=== PATIENT | male | born 1975 | race Caucasian/White ===

== ENCOUNTER → 2016-09-10 | Outpatient (CLI) | payer OTHER ==
[2016-09-10 10:28] LABS: BASO % 0.4 % (0.0-1.0); EOS # 0.3 K/mm3 (0.0-0.50); EOS % 2.1 % (0.0-3.0); LARGE UNSTAINED CELL # 0.2 K/mm3 (0.0-0.4); LARGE UNSTAINED CELL % 1.3 % (0.0-4.0); LYMPH # 2.1 K/mm3 (1.5-4.5); LYMPH % 15.3 % (24.0-44.0); MEAN CORPUSCULAR HEMOGLOBIN 28.3 pg (27.0-33.0); MEAN CORPUSCULAR HGB CONC 32.7 g/dl (32.0-36.5); MEAN CORPUSCULAR VOLUME 86.6 fl (80.0-96.0); MONO # 0.8 K/mm3 (0.0-0.8); NEUTROPHILS # 9.5 K/mm3 (1.8-7.7); NEUTROPHILS % 74.9 % (36.0-66.0); PLATELET COUNT, AUTOMATED 219 k/mm3 (150-450); RED CELL DISTRIBUTION WIDTH 13.8 % (11.5-14.5); WHITE BLOOD COUNT 12.6 K/mm3 (4.0-10.0)
[2016-09-10 11:15] LABS: ALBUMIN 3.5 GM/DL (3.2-5.2); BILIRUBIN,TOTAL 0.4 MG/DL (0.2-1.0); CALCIUM LEVEL 8.3 MG/DL (8.5-10.1); CREATININE FOR GFR 1.58 MG/DL (0.70-1.30); GLOMERULAR FILTRATION RATE 51.7 (>60); POTASSIUM SERUM 4.3 MEQ/L (3.5-5.1)
--- NOTE | 2016-09-10 11:40 | REP ---
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 Comparisons are 10/04/2011 and 10/03/2015. The visualized lung merchant are unremarkable. The unenhanced hepatic parenchyma, gallbladder, pancreas and spleen are unremarkable. The adrenals, kidneys and abdominal aorta are unremarkable. There is no retroperitoneal or pelvic adenopathy. There is no mesenteric adenopathy. The bowel is unremarkable. Pelvis: There is no ascites or adenopathy. The bladder is unremarkable. The pelvic bowel loops are unremarkable. There are no lytic, blastic or destructive skeletal changes. There is a small bone cyst posteriorly in the left iliac wing, not significantly changed from 10/03/2015. Impression: There is no adenopathy, ascites or mass. Small bone cyst posteriorly in the left iliac wing. Otherwise, essentially negative CT of the abdomen and pelvis. Signed by Morro Mathias MD 09/10/2016 11:32 A
== END ==
LOC: M LAB 09:26 → M RAD 09:26
PROVIDERS: ATTEND Internal Medicine Medical Oncology
DX: M85.452 Solitary bone cyst, left pelvis (principal); Z85.47 Personal history of malignant neoplasm of testis; Z90.79 Acquired absence of other genital organ(s)

== ENCOUNTER → 2016-11-03 | Outpatient (CLI) | payer OTHER ==
--- NOTE | 2016-11-03 17:07 | REP ---
HISTORY: Low back pain. COMPARISON: No prior MRIs for comparison. Today's exam was performed before and after intravenous gadolinium administration. Gadolinium utilized: 23.6 mL of ProHance. There is slight posterior disc space height loss from L3-4 to L5-S1, inclusive. Disc space hydrational signal is within normal limits throughout. Vertebral body height and alignment is within normal limits. The marrow signal is within normal limits. No abnormal signal is seen in the imaged portion of the spinal cord. The conus ends at T12-L1. At the L1-2 level, there is no disc herniation, foraminal narrowing or central canal stenosis. Mild degenerative facet joint changes are present bilaterally. At the L2-3 level, there is a minimal broad-based annular bulge seen in conjunction with mild degenerative facet joint changes bilaterally and minimal thickening of the ligamentum flava. There is mild compression of the anterior surface of the thecal sac. There is no disc extrusion or foraminal narrowing. At the L3-4 level, there is a moderate broad-based annular bulge seen in conjunction with a tiny focal subligamentous disc protrusion. Degenerative facet joint changes are seen mildly bilaterally with mild thickening of the ligamentum flava. There is minimal central canal stenosis due to the aforementioned changes with a flattening and straightening of the anterior surface of the thecal sac. No disc extrusion is present. At the L4-5 level, there is a broad-based annular bulge seen in conjunction with degenerative facet joint changes bilaterally and thickening of the ligamentum flava. There is mild anterior compression of the anterior surface of the thecal sac causing minimal central canal stenosis. There is no bebo foraminal narrowing or disc extrusion. At the L5-S1 level, there is no disc herniation, foraminal narrowing or central canal stenosis. No abnormal enhancement is seen at any imaged level. IMPRESSION: Discogenic changes and other related findings as described above. Signed by Raudel Nazario DO 11/04/2016 10:11 A
== END ==
LOC: M RAD 14:04
DX: M51.36 Other intervertebral disc degeneration, lumbar region (principal); M47.16 Other spondylosis with myelopathy, lumbar region
CPT/HCPCS: 72158; A9576

== ENCOUNTER → 2016-11-22 | Outpatient (CLI) | payer OTHER ==
[~2016-11-22] MED LIST: GASTROGRAFIN SOLUTION 30ML (Q9963) As Ordered ONE; ISOVUE-370 76% 100ML VIAL (Q9967) As Ordered ONE
--- NOTE | 2016-11-22 16:37 | REP ---
CT of the abdomen pelvis multiphase imaging without IV contrast, followed by dual phase IV contrast enhanced imaging . Comparisons are the CT of the abdomen pelvis without IV contrast dated 09/10/2016 and the lumbar MRI without and with gadolinium contrast enhancement dated 11/03/2016. The visualized lung merchant are unremarkable. The hepatic parenchyma is homogeneous on all phases of the study except for a small 9 mm hepatic cyst anteriorly in the medial segment of the hepatic left lobe, unchanged from the comparison CT and unchanged from a prior study of 10/03/2015. The hepatic parenchyma is otherwise homogeneous and unremarkable. The gallbladder, pancreas and spleen are normal size and unremarkable. The adrenals, kidneys and abdominal aorta are unremarkable and unchanged. There is no retroperitoneal adenopathy. There is no mesenteric adenopathy. The bowel and mesentery are otherwise unremarkable. Pelvis: The appendix has a normal appearance. There is no ascites. There is no adenopathy. The pelvic bowel loops are unremarkable. There are no lytic, blastic or destructive skeletal lesions, particularly at L4-5. There is a bone cyst posteriorly in the left iliac wing, unchanged in 10/03/2015. There is osteophytic bridging of the left sacroiliac joint superiorly, unchanged from 10/03/2015, compatible with mild osteoarthritis. Impression: There is no evidence of adenopathy, mass or metastatic disease. No skeletal metastases are identified, particularly at the L4-5 level. There is a small 9 mm cyst in the left lobe of the liver. There is a small bone cyst posteriorly in the left iliac wing. There is osteophytic bridging of the left sacroiliac joint compatible with osteoarthritis. Signed by Morro Mathias MD 11/22/2016 04:28 P
== END ==
LOC: M RAD 14:00
DX: M46.98 Unspecified inflammatory spondylopathy, sacral and sacrococcygeal region (principal); K76.89 Other specified diseases of liver; M85.452 Solitary bone cyst, left pelvis
CPT/HCPCS: 74178; Q9963; Q9967

== ENCOUNTER → 2017-11-04 | Outpatient (REF) | payer OTHER ==
[2017-11-04 14:12] LABS: ALPHA FETOPROTEIN TUMOR QUANT 4.6 NG/ML (<8.1)
[2017-11-05 08:06] LABS: HCG SERUM TUMOR MARKER QUANT < 1 mIU/mL (0-3)
== END ==
LOC: M LAB REF 13:03
DX: C62.12 Malignant neoplasm of descended left testis (principal)
CPT/HCPCS: 84702

== ENCOUNTER → 2017-11-07 | Outpatient (CLI) | payer OTHER ==
[~2017-11-07] MED LIST changes: +GASTROGRAFIN SOLUTION 30ML (Q9963) As Ordered; -GASTROGRAFIN SOLUTION 30ML (Q9963) As Ordered ONE; +ISOVUE-370 76% 100ML VIAL (Q9967) As Ordered; -ISOVUE-370 76% 100ML VIAL (Q9967) As Ordered ONE
== END ==
LOC: M RAD 13:30
DX: C62.90 Malignant neoplasm of unspecified testis, unspecified whether descended or undescended (principal); K44.9 Diaphragmatic hernia without obstruction or gangrene
CPT/HCPCS: Q9963

== ENCOUNTER 2017-11-30 08:16 | Day surgery (SDC) | payer OTHER ==
[2017-11-30] MEDS: NS 1,000 ML IV (08:49)
[2017-11-30] MEDS ORDERED: LIDOCAINE 2% INJ 100 MG/5 ML SDV (FOR ANES.) As Ordered (09:49)
[2017-11-30] MEDS ORDERED: PROPOFOL 200 MG/20 ML VIAL As Ordered ×2 (09:49→10:25)
== END 2017-11-30 10:35 | disposition home or self-care (01) ==
LOC: M OPP 08:16
DX: R12 Heartburn (principal); K22.8 Other specified diseases of esophagus; K44.9 Diaphragmatic hernia without obstruction or gangrene; Z85.47 Personal history of malignant neoplasm of testis; Z92.21 Personal history of antineoplastic chemotherapy; K21.9 Gastro-esophageal reflux disease without esophagitis; G47.30 Sleep apnea, unspecified; Z79.899 Other long term (current) drug therapy
CPT/HCPCS: 43239

== ENCOUNTER → 2020-11-17 | Outpatient (REF) ==
[~2020-11-17] MED LIST changes: -GASTROGRAFIN SOLUTION 30ML (Q9963) As Ordered; +IBUP-1022 PO; -ISOVUE-370 76% 100ML VIAL (Q9967) As Ordered; +NEXI40CA PO
== END ==
LOC: M PLAIMG 10:16
PROVIDERS: ATTEND Internal Medicine
DX: R06.02 Shortness of breath (principal); S99.922A Unspecified injury of left foot, initial encounter; S22.080A Wedge compression fracture of T11-T12 vertebra, initial encounter for closed fracture; M54.5 Low back pain; X58.XXXA Exposure to other specified factors, initial encounter; Y92.9 Unspecified place or not applicable; Y93.9 Activity, unspecified; Y99.9 Unspecified external cause status; M51.36 Other intervertebral disc degeneration, lumbar region

== ENCOUNTER → 2021-10-22 | Outpatient (CLI) | payer OTHER ==
[2021-10-22 17:22] LABS: HEMATOCRIT 53.3 % (42.0-52.0); HEMOGLOBIN 17.1 g/dl (13.5-17.5)
== END ==
LOC: M LAB 16:07
PROVIDERS: ATTEND Nurse Practitioner Family
DX: E29.1 Testicular hypofunction (principal)
CPT/HCPCS: 36415; 84403; 85014; 85018; G0103

== ENCOUNTER 2023-06-29 09:29 | Day surgery (SDC) | payer OTHER ==
[~2023-06-29] VITALS: Ht 185.4 cm; Wt 132.9 kg
[2023-06-29] MEDS: NS 1,000 ML IV ONE (06:00)
[2023-06-29] MEDS ORDERED: ATOR40TA75 PO (10:00)
[2023-06-29] MEDS ORDERED: LISI10TA22 PO (10:00)
[2023-06-29] MEDS ORDERED: TEST200I14 IM (10:02)
[2023-06-29] MEDS ORDERED: DULO60CA35 PO (10:03)
[2023-06-29] MEDS ORDERED: LIDOCAINE 2% 100MG/5ML SDV (FOR ANES.) As Ordered ONE (11:27)
[2023-06-29] MEDS ORDERED: propofoL 200 MG/20 ML VIAL As Ordered ONE (11:27)
[2023-06-29 11:29] VITALS: TEMP 97.4
[2023-06-29 11:48] VITALS: BP 138/67; O2SAT 99
== END 2023-06-29 11:54 | disposition home or self-care (01) ==
LOC: M OPP 09:29
PROVIDERS: ATTEND Surgery
DX: Z12.11 Encounter for screening for malignant neoplasm of colon (principal); G47.30 Sleep apnea, unspecified; Z99.89 Dependence on other enabling machines and devices; Z79.02 Long term (current) use of antithrombotics/antiplatelets; Z79.1 Long term (current) use of non-steroidal anti-inflammatories (NSAID); Z79.899 Other long term (current) drug therapy

== ENCOUNTER → 2023-07-29 | Outpatient (CLI) | payer OTHER ==
[~2023-07-29] MED LIST changes: +ATOR40TA75 PO; +DULO60CA35 PO; +LISI10TA22 PO; +TEST200I14 IM
[2023-07-29 09:52] LABS: HEMATOCRIT 52.1 % (42.0-52.0); HEMOGLOBIN 16.8 g/dl (13.5-17.5); MEAN CORPUSCULAR HEMOGLOBIN 29.9 pg (27.0-33.0); MEAN CORPUSCULAR HGB CONC 32.2 g/dl (32.0-36.5); MEAN CORPUSCULAR VOLUME 92.7 fl (80.0-96.0); PLATELET COUNT, AUTOMATED 243 10^3/uL (150-450); RED BLOOD COUNT 5.62 10^6/uL (4.30-6.10); WHITE BLOOD COUNT 7.9 10^3/uL (4.0-10.0)
[2023-07-29 10:47] LABS: PSA SCREENING 1.01 NG/ML (< 4.00)
== END ==
LOC: M LAB 09:11
PROVIDERS: ATTEND Physician Assistant
DX: Z12.5 Encounter for screening for malignant neoplasm of prostate (principal); E29.1 Testicular hypofunction; Z85.47 Personal history of malignant neoplasm of testis
CPT/HCPCS: 36415; 82105; 83615; 84403; 84702; 85027; G0103

== ENCOUNTER → 2024-05-31 | Outpatient (CLI) | payer OTHER | LOC: M PLAIMG 06:35 | PROVIDERS: ATTEND Pain Medicine Interventional Pain Medicine | DX: M54.16 Radiculopathy, lumbar region (principal) ==

== ENCOUNTER → 2024-12-07 | Outpatient (CLI) | payer OTHER ==
[~2024-12-07] MED LIST changes: -IBUP-1022 PO; +IBUP600T42 PO
[2024-12-07 11:43] LABS: PLATELET COUNT, AUTOMATED 219 10^3/uL (150-450)
[2024-12-07 12:16] LABS: PSA SCREENING 1.34 NG/ML (< 4.00)
[2024-12-07 12:20] LABS: TESTOSTERONE 766.0 NG/DL (241-827)
== END ==
LOC: M LAB 11:17
PROVIDERS: ATTEND Physician Assistant
DX: E29.1 Testicular hypofunction (principal); Z12.5 Encounter for screening for malignant neoplasm of prostate
CPT/HCPCS: 36415; 84403; 85027; G0103